=== PATIENT | male | born 1985 | race Two or more races ===

== ENCOUNTER 2025-05-01 10:55 | Emergency (ER) | payer MEDICAID, OTHER ==
[~2025-05-01] VITALS: Ht 170.2 cm; Wt 122.5 kg
[2025-05-01] MEDS: IV NS 0.9% 1,000 ML BAG IV ONE (11:38)
[2025-05-01 11:41] LABS: PLATELET COUNT (AUTO) 393 K/uL (150-450); RED BLOOD CELL COUNT(AUTO) 5.77 MIL/uL (4.5-6.0); RED CELL DISTRIBUTION WIDTH 13.2 % (11.5-15.0); WHITE BLOOD COUNT (AUTO) 9.7 K/uL (4.3-11.0)
[2025-05-01 11:48] LABS: CALCIUM, SERUM 9.1 mg/dL (8.5-10.1); CREATININE 1.0 mg/dL (0.6-1.3); SODIUM SERUM 130 mmol/L (136-145); UREA NITROGEN, BLOOD 13 mg/dL (7-18)
[2025-05-01 11:55] LABS: TOTAL PROTEIN, SERUM 7.9 g/dL (6.4-8.2)
[2025-05-01 12:13] LABS: FRACTIONATED INSPIRED OXYGEN-V 21.0 %; SITE, VBG VBG - N/A; VBG BASE EXCESS 0.1 mmol/L (-2.0-3.0); VBG HCO3 25.3 mmol/L (22.0-29.0); VBG MetHb 0.3 % (0.5-1.5); VBG OXYGEN SATURATION 77.9 % (60.0-85.0); VBG PCO2 43.1 mmHg (38.0-54.0); VBG PH 7.387 (7.320-7.430); VBG TOTAL HEMOGLOBIN 16.6 G/dL (13.5-17.5)
[2025-05-01] MEDS ORDERED: INSULIN REGULAR, HUMAN 100 UNIT/ML 10 ML VIAL ONE (12:42)
[2025-05-01 12:46] LABS: APPEARANCE,URINE CLEAR (CLEAR); BLOOD, URINE NEGATIVE Ery/uL (NEGATIVE); LEUKOCYTE ESTERASE ,URINE NEGATIVE (NEGATIVE); NITRITE, URINE NEGATIVE (NEGATIVE); UGLUCOSE 3+ mg/dL (NEGATIVE)
[2025-05-01] MEDS: INSULIN REGULAR, HUMAN 100 UNIT/ML 10 ML VIAL SQ ONE (12:46)
[2025-05-01 13:07] LABS: ADD URINE CULTURE NO; SQUAMOUS EPITHELIAL CELL,UR Rare /HPF (None Seen)
[2025-05-01 14:23] LABS: ASPARTATE AMINOTRANSFERASE 262 U/L (15-37)
[2025-05-01 14:32] VITALS: BP 125/84; TEMP 97.8; O2SAT 98
== END 2025-05-01 14:32 | disposition home or self-care (01) ==
LOC: ER 11:01
DX: E11.65 Type 2 diabetes mellitus with hyperglycemia (principal); R07.9 Chest pain, unspecified; R42 Dizziness and giddiness; R53.1 Weakness; R55 Syncope and collapse
CPT/HCPCS: 99285; 96360; 71045; 93005; 82803; 85025; 80048; 87086; 82010; 83690; 80076; 81001; 36415; 84484 ×2; 82962; 36600; 96372; J1815; J7030